=== PATIENT | male | born 1995 | race Two or more races ===

== ENCOUNTER 2019-12-24 17:34 | Outpatient (REF) | payer OTHER, SELFPAY | END 2019-12-24 17:35 | disposition home or self-care (01) | LOC: HO.LAB 17:34 | PROVIDERS: PCP Physician Assistant; Visit Provider Internal Medicine | DX: Z20.828 Contact with and (suspected) exposure to other viral communicable diseases (principal) | CPT/HCPCS: U0003 ==

== ENCOUNTER 2020-01-17 17:46 | Outpatient (REF) | payer OTHER, SELFPAY | END 2020-01-17 17:47 | disposition home or self-care (01) | LOC: HO.LAB 17:46 | PROVIDERS: PCP Physician Assistant; Visit Provider Internal Medicine | DX: Z20.828 Contact with and (suspected) exposure to other viral communicable diseases (principal) | CPT/HCPCS: C9803; U0003 ==

== ENCOUNTER 2020-02-08 12:01 | Outpatient (REF) | payer OTHER, SELFPAY | END 2020-02-08 12:02 | disposition home or self-care (01) | LOC: HO.LAB 12:01 | PROVIDERS: Visit Provider Internal Medicine | DX: Z20.828 Contact with and (suspected) exposure to other viral communicable diseases (principal) | CPT/HCPCS: C9803; U0003 ==

== ENCOUNTER 2020-10-17 09:07 | Outpatient (REF) | payer OTHER, SELFPAY ==
[2020-10-17 11:01] LABS: Hemoglobin 15.7 g/dl (14.0-18.0); Mean Corpuscular HGB Conc 34.1 g/dl (31.0-36.0); Mean Corpuscular Volume 87.8 fL (80-98); Platelet Count 351 X10*3/uL (160-400); Red Blood Count 5.24 X10*6/uL (4.60-5.80); Red Cell Distribution Width 13.5 % (11.0-16.0); White Blood Count 7.4 X10*3/uL (4.8-10.8)
[2020-10-17 11:08] LABS: Estimated Average Glucose 103 mg/dL; Hemoglobin A1c % 5.2 %
[2020-10-17 11:52] LABS: Alanine Aminotransferase 23 U/L (0-40); Albumin Level 4.4 g/dL (3.5-5.0); Alkaline Phosphatase 72 U/L (39-117); Anion Gap 14 (12-20); Aspartate Amino Transferase 16 U/L (5-37); Bilirubin Total 0.5 mg/dL (0.0-1.0); Blood Urea Nitrogen 15 mg/dL (9-16); Calcium 9.6 mg/dL (8.4-10.2); Carbon Dioxide 24 mmol/L (22-29); Chloride 107 mmol/L (96-108); Cholesterol 208 mg/dL; Estimated Glomerular Filt Rate > 60; Glucose Fasting 95 mg/dL (60-99); HDL Cholesterol 46 mg/dL; LDL Cholesterol Calculated 144 mg/dl; Potassium 4.7 mmol/L (3.3-5.1); Sodium 140 mmol/L (135-145); Total Protein 7.7 g/dL (6.5-8.0); Triglycerides 90 mg/dL
[2020-10-17 12:03] LABS: TSH reflex Free T4 2.07 uIU/mL (0.32-4.0)
[2020-10-24 14:57] LABS: Testosterone, Free 83.3 pg/mL (35.0-155.0); Testosterone, Total 323 ng/dL (250-1100)
== END 2020-10-17 09:08 | disposition home or self-care (01) ==
LOC: HO.LAB 09:07
PROVIDERS: PCP Physician Assistant; Visit Provider Physician Assistant
DX: N62 Hypertrophy of breast (principal); E66.09 Other obesity due to excess calories; E78.9 Disorder of lipoprotein metabolism, unspecified; R73.09 Other abnormal glucose; I10 Essential (primary) hypertension; Z68.31 Body mass index [BMI] 31.0-31.9, adult
CPT/HCPCS: 36415; 80053; 80061; 83036; 84402; 84403; 84443; 85027

== ENCOUNTER → 2020-11-15 13:52 | Outpatient (REF) | payer OTHER, SELFPAY | LOC: HO.SL 13:52 | PROVIDERS: PCP Physician Assistant; Visit Provider Physician Assistant | DX: R06.81 Apnea, not elsewhere classified (principal); J45.909 Unspecified asthma, uncomplicated | CPT/HCPCS: 95806 ==

== ENCOUNTER 2024-06-12 23:39 | Emergency (ER) | payer BC, SELFPAY ==
--- NOTE | ~2024-06-12 | XR_ITS ---
CLINICAL HISTORY: trauma --- Additional Notes or Special Instructions: 3rd and 4th finger tip 3 view left hand Comparison: None Findings: Soft tissue swelling includes the 3rd and 4th digits. Soft tissue defects suggested particularly in the distal soft tissues of the 4th digit. No displaced fracture. No dislocation. Bandage artifact noted about distal soft tissues of the 3rd and 4th digits. Mild deformity of the 5th metacarpal appears old/chronic IMPRESSION: 1. No acute fracture or dislocation. 2. Soft tissue swelling includes the 3rd and 4th digits. This document has been electronically signed by: Toro Hooks MD on 06/13/2024 02:07:17
[2024-06-12 23:51] VITALS: BP 125/94; PULSE 76; RESP 20; TEMP 36.4; O2SAT 99; BMI 33.4
--- NOTE | 2024-06-13 00:09 | ED.GENADULT ---
HPI - General Adult General Chief complaint: Wound/Laceration Stated complaint: finger lac Time Seen by Provider: 06/12/24 23:59 Source: patient, RN notes reviewed and old records reviewed Mode of arrival: ambulatory Limitations: no limitations History of Present Illness ED Provider: Gerardo WANG narrative: 28-year-old male presents for evaluation of left hand injury. Patient reports he was cutting vinyl tile. He reports that his hand slipped near the saw and he cut his 3rd and 4th fingers at the fingertip He was unsure when his last tetanus was He has no medical problems it was not on any blood thinners Related Data Previous Rx's ?Medication ?Instructions ?Recorded albuterol sulfate 2.5 mg/3 mL 2.5 mg (3 mL) inhalation Q6H 30 10/09/20 (0.083 %) solution for nebulization days #360 mL albuterol sulfate 90 mcg/actuation 1 inh inhalation QID 30 days #8.5 10/10/21 aerosol inhaler grams cephalexin 500 mg capsule 500 mg PO Q8H #15 caps 06/13/24 Allergies Allergy/AdvReac Type Severity Reaction Status Date / Time Sulfa (Sulfonamide Allergy Unknown rash Verified 06/12/24 23:53 Antibiotics) sulfamethoxazole Allergy Unknown UNKNOWN Verified 06/12/24 23:53 [From BACTRIM] trimethoprim [From BACTRIM] Allergy Unknown UNKNOWN Verified 06/12/24 23:53 bactrim Allergy Intermediate Itching Uncoded 10/10/21 16:13 Review of Systems Constitutional: Constitutional: Denies body ache(s), Denies chills and Denies headache(s) ENT: Denies headache(s) Integumentary/Breasts: Skin/Breast: Reports wounds Neurologic: Denies headache(s) [facility] Family History Family History Sister Substance use disorder Father Substance use disorder HTN (hypertension) Diabetes Mother Hypothyroid Social History Social History (Updated 10/10/21 @ 16:43 by Kun Conn PA-C) Housing: House Alcohol intake: current Alcohol intake frequency: holidays/special occasions only Alcohol type: beer Patient Tobacco Use Status: Never used Tobacco e-Cigarette/Vaping Use: Never Used Second Hand Smoke Exposure: No Advance Directives: Yes Advance Directives Information Provided: Yes Advance Directives on File: No Do you have a plan to hurt others: No Plan service: No Current occupational status: employed Current occupation: [employer] Cognitive needs: No Hearing needs: No Vision needs: No Physical Exam ED Vital Signs: Vital Signs - 24 hr 06/12/24 23:51 06/13/24 00:14 Temperature 97.5 F 98.2 F Pulse Rate 76 68 Respiratory Rate 20 18 Blood Pressure 125/94 H 133/85 Pulse Oximetry 99 96 Oxygen Delivery Method Room Air Room Air BMI result Body Mass Index 33.4 Const General: healthy appearing, comfortable, no acute distress, alert and awake Nutritional Appearance: well nourished Orientation/consciousness: patient oriented x3 HENMT Head: Yes normocephalic and Yes atraumatic Eyes Eyelids: Yes eyelids normal Conjunctivae: conjunctivae normal Sclerae: sclerae normal Corneas: corneas normal Pupils: Equal, round and reactive pupils present EOM: EOMs intact bilaterally Neck Neck: Yes full ROM Resp Effort & Inspection: normal respiratory effort, able to speak in complete sentences and not labored Skin General skin exam: elasticity normal Neuro General: patient oriented x3 Cranial nerves: Yes Equal, round and reactive pupils present and Yes Bilaterally intact EOM present Cognition (Neuro): normal cognition Extrem Other: Patient has an avulsion injury to the fingertip of the left 3rd and 4th fingers. The 4th finger appears more affected with a 1 x 1 cm avulsion on the ulnar side of the fingertip. There is active bleeding. I do not see any exposed bone. The 3rd finger has a smaller, 0.5 x 0.5 cm avulsion also on the ulnar side of the fingertip. This appears fairly shallow Course Reevaluation(s) Reevaluation #1: Hemostasis was achieved with topical TXA and Surgicel. Sterile dressing applied. X-ray shows no definitive fracture. We will give the patient is short course of antibiotics given the wounds will remain open Time: 02:19 Medications Administered Discontinued Medications Generic Name Dose Route Start Last Admin Trade Name Freq PRN Reason Stop Dose Admin Diphtheria/Tetanus/Acell Pertussis 0.5 ml 06/13/24 00:10 06/13/24 00:17 Diphth,Pertus(Acell),Tet Adult 0.5 Ml Syringe IM 06/13/24 00:11 0.5 ml .ONCE ONE Administration Tranexamic Acid 1,000 mg/ 60 mls @ 360 mls/hr 06/13/24 00:09 06/13/24 00:18 Sodium Chloride IV 06/13/24 00:18 360 mls/hr ONCE ONE Administration Ketorolac Tromethamine 30 mg 06/13/24 01:05 06/13/24 01:24 Ketorolac Tromethamine 30 Mg/Ml Vial IM 06/13/24 01:06 30 mg ONCE ONE Administration Medical Decision Making Medical Decision Making MDM Narrative: 28-year-old male presents for evaluation of an avulsion injury to his left 3rd and 4th finger. I have a low suspicion for bony injury, but given the trauma we will get an x-ray of the left hand. Per our records, the patient's last tetanus was in 2018, he agrees to a booster today. Attempt to control the bleeding with TXA and direct pressure. Prior to hemostasis we will cleaned the wounds. Given the nature of the injury, there is no indication for emergent closure, as this is an avulsion injury, not a simple laceration that can be repaired. Differential Diagnosis Differential Diagnoses: The differential diagnosis associated with the presentation includes Avulsion injury Laceration Skin tear Open Independent Interpretation I performed an independent interpretation of an: Plain X-Ray Interpretation: No obvious fracture Radiology Impression Discussion of test interpretation with radiology: I have reviewed the radiologist's reading. Radiologist Impression: Findings: Soft tissue swelling includes the 3rd and 4th digits. Soft tissue defects suggested particularly in the distal soft tissues of the 4th digit. No displaced fracture. No dislocation. Bandage artifact noted about distal soft tissues of the 3rd and 4th digits. Mild deformity of the 5th metacarpal appears old/chronic IMPRESSION: 1. No acute fracture or dislocation. 2. Soft tissue swelling includes the 3rd and 4th digits. This document has been electronically signed by: Toro Hooks MD on 06/13/2024 02:07:17 Discharge Plan Discharge Clinical Impression: Avulsion injury Patient Disposition: Home, Self-Care Instructions: Skin Avulsion (ED) Additional Instructions: You have small avulsion injuries to the tip of your left 3rd and 4th fingers. The skin was removed and can not be sutured closed. Keep the areas clean and dry. Take cephalexin 3 times daily for 5 days to prevent infection You may apply topical antibiotic once a day Follow-up with your primary doctor, return for new or worsening symptoms Your tetanus was updated today Prescriptions: New cephalexin 500 mg capsule 500 mg PO Q8H Qty: 15 0RF No Action albuterol sulfate 90 mcg/actuation HFA aerosol inhaler 1 inh inhalation QID 30 Days Qty: 8.5 1RF albuterol sulfate 2.5 mg /3 mL (0.083 %) solution for nebulization 2.5 mg inhalation Q6H 30 Days Qty: 360 0RF Print Language: Greek
[2024-06-13 00:14] VITALS: BP 133/85; PULSE 68; RESP 18; TEMP 36.8; O2SAT 96
[2024-06-13] MEDS: Diphth,Pertus(ACell),Tet Adult 0.5 ML SYRINGE IM (00:17)
[2024-06-13] MEDS: Tranexamic Acid 1,000 MG in 0.9 % Sodium Chloride 50 ML 360 MG IV (00:18)
[2024-06-13] MEDS: Ketorolac Tromethamine 30 MG/ML VIAL IM (01:24)
--- OUTSIDE RECORDS SUMMARY | 2024-06-13 02:09 | XMS_ITS | Data Portability ---
Author Organization [facility], [address] Address [address] [place] [address] Care Team Providers Care Tick Inspector Name Role Phone SEAN MIRZA Primary Care Provider [phone] Assessment No assessment recorded. Plan of Treatment Reminders Order Date Submit Date Provider Last Modified By Organization Details Last Modified Time Details Appointments None recorded. Lab rapid SARS CoV 2 Ag, QL IA, respiratory specimen 2021 [email or web address] 1 [facility], [address] [place] [address], [id number], 12:03:42 rapid flu (A+B) 2021 [email or web address] 1 [facility], [address] [place] [address], [phone], 12:03:42 Referral None recorded. Procedures None recorded. Surgeries None recorded. Imaging None recorded. Medication Orders oseltamivir 75 mg capsule 2021 [id number], [address] [place], [address], 12:03:43 Patient TargetsNo targets recorded. Patient Instructions Encounter Date Encounter Id Patient Instructions Last Modified By Organization Details Last Modified Time 02/13/2022 [id number] influenza (flu): care instructions [email or web address] Not available 02/13/2022 12:03:51 Reason for Referral None Reported. Results Created Date Observation Date Name Description Value Unit Range Abnormal Flag Note LastModifiedBy Organization Detail LastModifiedTime 02/14/20 22 02/13/2022 rapid SARS CoV 2 Ag, QL IA, respi rator y speci men Unknown Analyte Normal =Negat karli Not Available 2099noemy gentile [address] [place], [address], 02/13/2022 11:36:29 02/14/20 22 02/13/2022 rapid SARS CoV 2 Ag, QL IA, respi rator y speci men Unknown Analyte negati ve Not Available [address] [place], [address], 02/13/2022 11:36:29 02/14/20 22 02/13/2022 rapid flu (A+B) Unknown Analyte Normal = Negati ve Not Available [address] [place] [address] [place], [address], 02/13/2022 11:36:37 02/14/20 22 02/13/2022 rapid flu (A+B) Unknown Analyte Normal = Negati ve Not Available [id number] [place], [address], 02/13/2022 11:36:37 02/14/20 22 02/13/2022 rapid flu (A+B) Unknown Analyte positi ve Not Available [address] [place] [address], [address], 02/13/2022 11:36:37 02/14/20 22 02/13/2022 rapid flu (A+B) Unknown Analyte negati ve Not Available [address] [place] [address] [place], [address], 02/13/2022 11:36:37 Result Notes None recorded. Problems Name Problem SNOMED Code Status Onset Date Resolution Date Notes Provider Name and Address Organization Details Recorded Time Asthma 506836711 Active 022 FRITZ Whatley [facility] 02/13/2022 11:32:15 Problem Notes None recorded. Procedures Surgical History Date Name Laterality Status Provider Name and Address Organization Details Recorded Time 02/24/2009 Knee arthroscop y/surgery completed SUSU Christine [facility] 02/13/2022 11:33:23 Imaging Results None recorded. Procedure Notes None recorded. Medical Equipment None Reported. Allergies Allergen ID Allergen Name Allergen Category Reaction Reaction Severity Criticality Documentation Date Start Date Code Code System Note Provider Name and Address Organization Details Recorded Time 50750 Bactrim medicatio n rash Not available high 02/13/2022 29035 9 RxNorm [facility] 11:31:42 Medications Name Sig Start Date Stop Date Status Note LastModified by Organization Details LastModified Time ofloxacin 0.3 % ear drops INSTILL 5 DROPS INTO AFFECTED EAR 2 TIMES PER DAY FOR 7 DAYS 02/13 completed Not Available Not Available Not Available amoxicillin 875 mg tablet TAKE 1 TABLET (ORAL) 2 TIMES PER DAY FOR 10 DAYS FOR INFECTION 02/13 completed Not Available Not Available Not Available oseltamivir 75 mg capsule TAKE 1 CAPSULE BY MOUTH TWICE A DAY FOR 5 DAYS active Not Available Not Available No t Available albuterol sulf 90 mcg/actuati on breath activated powder inhaler,sen sor Inhale 2 puffs every 4 hours by inhalatio n route. active Not Available Not Available No t Available Vitals Date Recorded Body height Body mass index (BMI) Body weight Oxygen saturation Oxygen saturation in Arterial blood by Pulse oximetry Heart rate Respiratory rate Body temperature Systolic blood pressure Diastolic blood pressure Provider Name and Address Organization Details Last Updated DateTime 172.72 cm 34.4 kg/m2 854406. 88 g 95 % 95 % 91 /min 16 /min 98.8 [degF] 137 mm[Hg] 88 mm[Hg] [facility] 11:35:29 Social History Question Answer Notes LastModified by Organizat ion Details LastModified Time Tobacco Smoking Status Never Smoker FRITZ Whatley [facility] 02/13/2022 11:32:58 What Is Your Level Of Alcohol Consumption? Occasional Information not available 02/13/2022 Are You Currently Employed? Yes Information not available 02/13/2022 Do You Use Any Illicit Or Recreational Drugs? No Information not available 02/13/2022 Have You Recently Traveled Abroad? No Information not available 02/13/2022 Do You Or Have You Ever Used Any Other Forms Of Tobacco Or Nicotine? No Information not available 02/13/2022 Sex: Unknown Functional Status None recorded. Mental Status None recorded. Family History Relationship Description Onset Age of this Age Resolved Age Notes LastModified by Organization Details LastModified Time Mother Hypertensive disorder Not available 2021 11:32:38 Father Diabetes mellitus Not available 2021 11:32:46 Medical History No medical history recorded. Past Encounters Encounter ID Performer Location Encounter Start Date Encounter Closed Date Diagnosis/Indication Diagnosis SNOMED-CT Code Diagnosis ICD10 Code Diagnosis Note [id number] [address] [place] [address] 07/15/2021 18:52:56 07/15/2021 20:05:10 [id number] [address] 04/25/2017 18:50:45 04/25/2017 19:37:12 [id number] SHASTA HUNTER MD [address] [address] 02/13/2022 08:21:11 02/13/2022 12:06:53 Cough 53734531 R05.9 Influenza caused by Influenza A virus 371583415 J09.X2 You can alternate the acetaminop hen (Tylenol) and ibuprofen (Motrin) every 4 hours to help keep the symptoms under better control. If you are having thick mucus, you can useMUCINEX PLAINto help with your symptoms. Mucinex helps to thin mucus and works best when you drink plenty of water/flui ds throughout the whole day. If you are having thick mucus and a cough, you can useMUCINEX -DMto help with your symptoms. Mucinex helps to thin mucus and the DM is the cough suppressan t. This will work best when you drink plenty of water/flui ds throughout the whole day. If you just have coughand not thick mucus, you can useDELSYMt o help with your symptoms. Some people feel DELSYM makes them feel a little tired so you may want to use cough drops during the day and add the DELSYM in at night. Drink plenty of fluids If your symptoms worsen or persist you should be re-evaluat ed. If your symptoms are getting worse, or if you develop new symptoms that concern you, you should call 911 or go to the Emergency Department . Health Concerns Section Related Observation LastModified by Organization Detai ls LastModified Time None Recorded Concern Status LastModified by Organization Details LastModified Time None Recorded Advance Directives Directive None Recorded Payers Encounter Date Sequence Insurance Name Policy Number Policy Mcdermott Covered Member ID Mcdermott Member ID Guarantor Name 04/25/2017 1 [facility] [place] [place] [id number] Xaviel Raj Colon [id number] Xaviel Colon 07/15/2021 1 [facility] [place] [place] [id number] Xaviel Raj Colon [id number] Xaviel Colon 02/13/2022 1 [facility] [place] [place] [id number] Xaviel Raj Colon [id number] Xaviel Colon Notes Date Note Type Note Provider Name and Address Organization Details Recorded Time 02/13/2022 text/html CoughReported bypatient.Quality:d ry and wet; intermittent Severity:moderate Duration:constant; 2 days Timing:constant Associated Symptoms:no nausea; no vomiting;fever(102. 8 max);chills started 3d ago with congestion, 2d ago with cough, achy and yest with f/c/s and feeling awful SHASTA HUNTER MD [address] [place] [place], [address], [place] - [facility] 02/13/2022 12:09:27
--- OUTSIDE RECORDS SUMMARY | 2024-06-13 02:09 | XMS_ITS | Encounter Summary ---
Author Organization [facility] Address [address] [place] [address] Phone Care Team Providers Care Pressing Machine Operator Name Role Phone Gabriel Luna MD Primary Care Provider [phone] Encounter Details Date Type Department Care Team (Late st Contact Info) Description 07/09/2012 Documentation [facility] [place] [facility] [address] [place] [address] Family Medicine, Physician [address] [place], [place] [phone] Social History Tobacco Use Types Packs/Day Years Used Date Smoking Tobacco: Never Assessed Sex and Gender Information Value Date Recorded Sex Assigned at Not on file Legal Sex Male 4:57 PM EDT Gender Identity Not on file Sexual Orientation Not on file documented as of this encounter Plan of Treatment Not on file documented as of this encounter Visit Diagnoses Not on filedocumented in this encounter Care Teams Pressing Machine Operator Relationship Specialty Start Date End Date Gabriel Luna MD [address] [place] [address] [place] [address] PCP - General 10/04/16 05/14/22 documented as of this encounter
--- OUTSIDE RECORDS SUMMARY | 2024-06-13 02:09 | XMS_ITS | Encounter Summary ---
Author Organization [facility] Address [address] [place] [address] Phone Care Team Providers Care Composition Stone Applicator Name Role Phone Gabriel Luna MD Primary Care Provider Encounter Details Date Type Department Care Team (Late st Contact Info) Description 07/09/2012 Documentation [facility] [address] [place] [address] Family Medicine, Physician [address] [place], [place] [phone] Social History Tobacco Use Types Packs/Day Years [...] on filedocumented in this encounter Care Teams Composition Stone Applicator Relationship Specialty Start Date End Date Gabriel Luna MD [address] [place] [address] [place] [address] PCP - General 10/04/16 05/14/22 documented as of this encounter
--- OUTSIDE RECORDS SUMMARY | 2024-06-13 02:09 | XMS_ITS | Encounter Summary ---
Author Organization [facility] Address [address] [place] [address] Phone Care Team Providers Care Leaf Size Picker Name Role Phone Gabriel Luna MD Primary Care Provider [phone] Encounter Details Date Type Department Care Team (Late st Contact Info) Description 11/16/2013 Documentation [facility] [place] Family Medicine [address] [place] [address] Family Medicine, Physician [address] [place], [place] [phone] Social History Tobacco Use Types Packs/Day Years [...] on filedocumented in this encounter Care Teams Leaf Size Picker Relationship Specialty Start Date End Date Gabriel Luna MD [address] [place] [address] [place] [address] PCP - General 10/04/16 05/14/22 documented as of this encounter
--- OUTSIDE RECORDS SUMMARY | 2024-06-13 02:09 | XMS_ITS | Encounter Summary ---
Author Organization [facility] Address [address] [place] [address] Phone Care Team Providers Care Cigar Head Piercer Name Role Phone Gabriel Luna MD Primary Care Provider [phone] Encounter Details Date Type Department Care Team (Late st Contact Info) Description 07/09/2012 Documentation [facility] [place] [address] [place] [address] Family Medicine, Physician [address] [place], [place] [phone] Social History Tobacco Use Types Packs/Day Years [...] on filedocumented in this encounter Care Teams Cigar Head Piercer Relationship Specialty Start Date End Date Gabriel Luna MD [address] [place] [address] [place] [address] PCP - General 10/04/16 05/14/22 documented as of this encounter
--- OUTSIDE RECORDS SUMMARY | 2024-06-13 02:09 | XMS_ITS | Encounter Summary ---
Author Organization [facility] Address [address] [place] [address] Phone Care Team Providers Care Patch Setter Name Role Phone Gabriel Luna MD Primary Care Provider [phone] Encounter Details Date Type Department Care Team (Late st Contact Info) Description 07/09/2012 Documentation [facility] [place] [address] [place] [address] Family Medicine, Physician [address] [place], [place] [phone] Social History Tobacco Use Types Packs/Day Years [...] on filedocumented in this encounter Care Teams Patch Setter Relationship Specialty Start Date End Date Gabriel Luna MD [address] [place] [address] [place] [address] PCP - General 10/04/16 05/14/22 documented as of this encounter
--- OUTSIDE RECORDS SUMMARY | 2024-06-13 02:09 | XMS_ITS | Encounter Summary ---
Author Organization [facility] Address [address] [place] [address] Phone Care Team Providers Care Clinical Lab Specialist Name Role Phone Gabriel Luna MD Primary Care Provider [phone] Encounter Details Date Type Department Care Team (Late st Contact Info) Description 07/09/2012 Documentation [facility] [place] [address] [place] [address] Family Medicine, Physician [address] [place], [place] [phone] Social History Tobacco Use Types Packs/Day Years [...] on filedocumented in this encounter Care Teams Clinical Lab Specialist Relationship Specialty Start Date End Date Gabriel Luna MD [address] [place] [address] [place] [address] PCP - General 10/04/16 05/14/22 documented as of this encounter
--- OUTSIDE RECORDS SUMMARY | 2024-06-13 02:09 | XMS_ITS | Encounter Summary ---
Author Organization [facility] Address [address] [place] [address] Phone Care Team Providers Care Bass Fisher Name Role Phone Gabriel Luna MD Primary Care Provider [phone] Encounter Details Date Type Department Care Team (Late st Contact Info) Description 09/15/2012 Documentation [facility] [place] [facility] [address] [place] [address] Family Medicine, Physician [address] [place], [place] [phone] Social History Tobacco Use Types Packs/Day Years [...] on filedocumented in this encounter Care Teams Bass Fisher Relationship Specialty Start Date End Date Gabriel Luna MD [address] [place] [address] [place] [address] PCP - General 10/04/16 05/14/22 documented as of this encounter
--- OUTSIDE RECORDS SUMMARY | 2024-06-13 02:10 | XMS_ITS | Encounter Summary ---
Author Organization [facility] Address [address] [place] [address] Phone Care Team Providers Care Whiteprinting Machine Operator Name Role Phone Gabriel Luna MD Primary Care Provider [phone] Encounter Details Date Type Department Care Team (Late st Contact Info) Description 03/08/2010 Documentation [facility] [place] [address] [place] [address] Family Medicine, Physician [address] [place], [place] [phone] Social History Tobacco Use Types Packs/Day Years [...] on filedocumented in this encounter Care Teams Whiteprinting Machine Operator Relationship Specialty Start Date End Date Gabriel Luna MD [address] [place] [address] [place] [address] PCP - General 10/04/16 05/14/22 documented as of this encounter
--- OUTSIDE RECORDS SUMMARY | 2024-06-13 02:10 | XMS_ITS | Clinical Summary ---
Author Organization [facility] Address [address] [place] [address] Phone Care Team Providers Care Tech Ed/Woodshop Teacher Name Role Phone Unavailable Primary Care Provider Unavailabl e Immunizations Immunization Administration Dates Next Due DTP 07/10/1995, 5,06/04/1994,02/21 DTaP 5 10/13/1998 H1N1 02/10/2009 HPV, Quadrivalent 11/15/2013,09/14/2012,07/09/19 13 Hep A, Adult 11/22/2014,11/15/2013 Hep B, ped/adol 12/18/1994,01/15/1994,1993 Hib (PRP-T) 07/10/1995, 5,06/04/1994,02/21 IPV 09/29/1999, 6,10/07/1994,06/04,02/21/1994 Influenza Split 11/06/2011 Influenza, injectable, quadr ivalent, preservative free 11/22/2014,11/15/2013 Influenza, injectable, trivalent 12/09/2007 MMR 10/13/1998,07/10/1995 Meningococcal Conj (Menactra) MCV4P 11/15/2013,0 08/12/2006 Tdap 08/12/2006 Family History Relation Name Status Comments Father Alive Father: Diabete s mellitus Mother Mother: Healthy Other Family history of Diabetes mellitus, Family history of Cancer, skin, Family history of Asthma, No family history of Obesity Sister Sister: Asthma, Blood disease Social History Tobacco Use Types Packs/Day Years Used Date Smoking Tobacco: Never Comments:Never smoker Sex and Gender Information Value Date Recorded Sex Assigned at Not on file Legal Sex Male 4:57 PM EDT Gender Identity Not on file Sexual Orientation Not on file Last Filed Vital Signs Vital Sign Reading Time Taken Comments Blood Pressure 124/77 11/22/2014 12:00 AM EDT Pulse 73 11/22/2014 12:00 AM EDT Temperature 37 ??C (98.6 ??F) 09/02/2014 12:00 AM EDT Respiratory Rate - - Oxygen Saturation 98% 08/22/2011 12:00 AM EDT Inhaled Oxygen Concentration - - Weight 86.4 kg (190 lb 6.4 oz) 11/22/2014 12:00 AM EDT Height 172.1 cm (5' 7.75 ) 11/22/2014 12:00 AM E DT Body Mass Index 29.16 11/22/2014 12:00 AM EDT Plan of Treatment Health Maintenance Due Date Last Done Comments Varicella Vaccines (1 of 2 - 13+ 2-dose series) 2006 DTaP,Tdap,and Td Vaccines (7 - Td or Tdap) 08/12/2016 08/12/2006, 10/13/1998, 07/10/1995, Additional history exists Influenza Vaccines (#1) 2023 11/23/19 15, 11/15/2013, 11/06/2011, Additional history exists COVID-19 Vaccine (2023- season) 2023 Hepatitis B Vaccines Completed 12/18/1994, 01/15/1994, 1993 HIB Vaccines Completed 07/10/1995, 09/24, 06/04/1994, Additional history exists MMR Vaccines Completed 10/13/1998, 07/10/1995 IPV Vaccines Completed 09/29/1999, 06/24, 10/07/1994, Additional history exists HPV Vaccines Completed 11/15/2013, 08/25, 07/08/2012 Meningococcal Vaccine Aged Out 11/15/2013, 007 No longer eligible based on patient's age to complete this topic Hepatitis A Vaccines Aged Out 11/22/2014, 11/16/19 14 No longer eligible based on patient's age to complete this topic Men B Vaccine Aged Out No longer elig ible based on patient's age to complete this topic Pneumococcal Vaccine Aged Out No long er eligible based on patient's age to complete this topic
--- OUTSIDE RECORDS SUMMARY | 2024-06-13 02:10 | XMS_ITS | Encounter Summary ---
Author Organization [facility] Address [address] [place] [address] Phone Care Team Providers Care Spinning Machine Tender Name Role Phone Gabriel Luna MD Primary Care Provider [phone] Encounter Details Date Type Department Care Team (Late st Contact Info) Description 11/23/2014 Documentation [facility] [place] [address] [place] [address] Family Medicine, Physician [address] [place], [place] [phone] Social History Tobacco Use Types Packs/Day Years [...] on filedocumented in this encounter Care Teams Spinning Machine Tender Relationship Specialty Start Date End Date Gabriel Luna MD [address] [facility] [place] [address] PCP - General 10/04/16 05/14/22 documented as of this encounter
--- OUTSIDE RECORDS SUMMARY | 2024-06-13 02:10 | XMS_ITS | Encounter Summary ---
Author Organization [facility] Address [address] [place] [address] Phone Care Team Providers Care Electrical Checkout Mechanic Name Role Phone Gabriel Luna MD Primary Care Provider [phone] Encounter Details Date Type Department Care Team (Late st Contact Info) Description 11/07/2011 Documentation [facility] [place] [address] [place] [address] Family Medicine, Physician [address] [place], [place] [phone] Social History Tobacco Use Types Packs/Day Years [...] on filedocumented in this encounter Care Teams Electrical Checkout Mechanic Relationship Specialty Start Date End Date Gabriel Luna MD [address] [place] [address] [place] [address] PCP - General 10/04/16 05/14/22 documented as of this encounter
--- OUTSIDE RECORDS SUMMARY | 2024-06-13 02:10 | XMS_ITS | Encounter Summary ---
Author Organization [facility] Address [address] [place] [phone] Phone Care Team Providers Care Irradiated Fuel Handler Name Role Phone Gabriel Luna MD Primary Care Provider [phone] Encounter Details Date Type Department Care Team (Late st Contact Info) Description 11/16/2013 Documentation [facility] [place] [address] [place] [address] Family Medicine, Physician [address] [place], [place] [phone] Social History Tobacco Use Types Packs/Day Years [...] on filedocumented in this encounter Care Teams Irradiated Fuel Handler Relationship Specialty Start Date End Date Gabriel Luna MD [address] [place] [address] [place] [address] PCP - General 10/04/16 05/14/22 documented as of this encounter
--- OUTSIDE RECORDS SUMMARY | 2024-06-13 02:10 | XMS_ITS | Encounter Summary ---
Author Organization [facility] Address [address] [place] [address] Phone Care Team Providers Care Photovoltaic Solar Cell Designer Name Role Phone Gabriel Luna MD Primary Care Provider [phone] Encounter Details Date Type Department Care Team (Late st Contact Info) Description 11/23/2014 [place] [facility] [place] [address] [place] [address] Family Medicine, Physician [address] [place], [place] [phone] Social History Tobacco Use Types Packs/Day Years [...] on filedocumented in this encounter Care Teams Photovoltaic Solar Cell Designer Relationship Specialty Start Date End Date Gabriel Luna MD [address] [facility] [address] PCP - General 10/04/16 05/14/22 documented as of this encounter
--- OUTSIDE RECORDS SUMMARY | 2024-06-13 02:10 | XMS_ITS | Encounter Summary ---
Author Organization [facility] Address [address] [place] [address] Phone Care Team Providers Care Fine Arts Instructor Name Role Phone Gabriel Luna MD Primary Care Provider [phone] Encounter Details Date Type Department Care Team (Late st Contact Info) Description 04/25/2009 Documentation [facility] [place] [address] [place] [address] Family Medicine, Physician [address] [place], [place] [phone] Social History Tobacco Use Types Packs/Day Years [...] on filedocumented in this encounter Care Teams Fine Arts Instructor Relationship Specialty Start Date End Date Gabriel Luna MD [address] [place] [address] [place] [address] PCP - General 10/04/16 05/14/22 documented as of this encounter
--- OUTSIDE RECORDS SUMMARY | 2024-06-13 02:10 | XMS_ITS | Encounter Summary ---
Author Organization [facility] Address [address] [place] [address] Phone Care Team Providers Care Tower Supervisor Name Role Phone Gabriel Luna MD Primary Care Provider [phone] Encounter Details Date Type Department Care Team ([facility] st Contact Info) Description 10/10/2016 Conversion Encounter [facility] [place] [address] [place] [address] Social History Tobacco Use Types Packs/Day Years [...] on filedocumented in this encounter Care Teams Tower Supervisor Relationship Specialty Start Date End Date Gabriel Luna MD [address] [place] [address] PCP - General 10/04/16 05/14/22 documented as of this encounter
--- OUTSIDE RECORDS SUMMARY | 2024-06-13 02:10 | XMS_ITS | Encounter Summary ---
Author Organization [facility] Address [address] [place] [address] Phone Care Team Providers Care Ship'S Cook Name Role Phone Gabriel Luna MD Primary Care Provider [phone] Encounter Details Date Type Department Care Team (Late st Contact Info) Description 11/23/2014 [place] [facility] [place] [address] [place] [address] Family Medicine, Physician [address] [place], [place] [phone] Social History Tobacco Use Types Packs/Day Years [...] on filedocumented in this encounter Care Teams Ship'S Cook Relationship Specialty Start Date End Date Gabriel Luna MD [address] [facility] [place] [address] PCP - General 10/04/16 05/14/22 documented as of this encounter
[2024-06-13 02:27] VITALS: BP 113/62; PULSE 47; RESP 16; O2SAT 96
[2024-06-13 02:33] VITALS: BP 112/64; PULSE 56; RESP 18; TEMP 36.5; O2SAT 96
== END 2024-06-13 02:38 | disposition home or self-care (01) ==
PROVIDERS: Emergency Provider Emergency Medicine; PCP Internal Medicine
DX: S61.303A Unspecified open wound of left middle finger with damage to nail, initial encounter (principal); S61.305A Unspecified open wound of left ring finger with damage to nail, initial encounter; W27.0XXA Contact with workbench tool, initial encounter; Y93.89 Activity, other specified; Y92.9 Unspecified place or not applicable; Y99.9 Unspecified external cause status; Z23 Encounter for immunization
CPT/HCPCS: 73130; 90471; 90715; 96372; 99284; J1885

== ENCOUNTER → 2024-06-13 00:10 | Outpatient (BNV) | payer BC, SELFPAY | PROVIDERS: Emergency Provider Emergency Medicine; PCP Internal Medicine; Visit Provider Radiology Neuroradiology | DX: S69.92XA Unspecified injury of left wrist, hand and finger(s), initial encounter (principal) | CPT/HCPCS: 73130 ==

== ENCOUNTER → 2024-11-12 10:05 | Outpatient (BNVA) | payer OTHER, SELFPAY | PROVIDERS: PCP Internal Medicine; Visit Provider Emergency Medicine | DX: S83.92XA Sprain of unspecified site of left knee, initial encounter (principal); X50.1XXA Overexertion from prolonged static or awkward postures, initial encounter | CPT/HCPCS: 73564; 99204 ==

== ENCOUNTER → 2024-11-26 08:08 | Outpatient (BNVA) | payer OTHER, SELFPAY | PROVIDERS: PCP Internal Medicine; Visit Provider Emergency Medicine | DX: S83.92XD Sprain of unspecified site of left knee, subsequent encounter (principal); X50.1XXD Overexertion from prolonged static or awkward postures, subsequent encounter; Z02.79 Encounter for issue of other medical certificate | CPT/HCPCS: 99213 ==

== ENCOUNTER 2024-12-21 07:54 | Outpatient (AMB) | payer BC, SELFPAY ==
[2024-12-21 07:57] VITALS: BP 118/72; PULSE 75; O2SAT 98; BMI 34.2
--- NOTE | 2024-12-21 07:57 | A.OFFPC_ITS ---
Vital Signs 12/21/24 07:57 Height 5 ft 8 in Weight 225 lb BMI 34.2 BP 118/72 Blood Pressure Location Lt brachial Position Sitting Pulse 75 Pulse Source Pulse Oximeter Pulse Oximetry (%) 98 Oxygen Delivery Method Room Air Intake Visit Reasons: Annual PE-waiting for bcbs To reflect PCP Fabien Allergies Sulfa (Sulfonamide Antibiotics) Allergy (Unknown, Verified 12/21/24 08:08) rash sulfamethoxazole (From BACTRIM) Allergy (Unknown, Verified 12/21/24 08:08) UNKNOWN trimethoprim (From BACTRIM) Allergy (Unknown, Verified 12/21/24 08:08) UNKNOWN bactrim Allergy (Intermediate, Uncoded 12/21/24 08:08) Itching Medication List - Last Reconciled 12/21/24 by Kun Conn PA-C albuterol sulfate 2.5 mg (3 mL) inhalation Q6H 30 days albuterol sulfate 90 mcg/actuation 1 inh inhalation QID 30 days Tobacco use date assessed: 12/21/24 Dental Screening Dental Screen Date: 12/21/24 Did you have a dental visit in the last 12 months?: Yes Did you have a dental problem in the last 6 months where you did not have access to dental care?: No Was dental information given to patient?: Patient has dentist HPI Annual PE-waiting for bcbs To reflect PCP Fabien HPI Details Patient is a 29 year-old male here today for annual physical. ?Patient has a past medical history? significant for asthma, mild TUTU, obesity GERD. . ?..? Concerns--> patient concerned about developing diabetes, his weight in his testosterone levels ... ?Asthma: REport his breathing has been stable, only using his albuterol inhaler on a p.r.n. basis.? He does report his breathing is compromise during humid weather. ?. Class 1 Obesity:? Unfortunately has gained weight since last office visit..? Has been working on lifestyle to reduce portion sizes and be more physically active. Of note did do a testosterone level when he was 26 years old which was on the low end of normal. ? Vaccines:? Up-to-date with tetanus UTD with COVID Vac, declines flu vaccine , Needs PCV-20 PFSH Medical History Pain Family History (Updated 12/21/24 @ 08:11 by Kun Conn PA-C) Sister Substance use disorder Father Substance use disorder HTN (hypertension) Diabetes Mother Hypothyroid Diabetes Social History (Updated 12/21/24 @ 08:12 by Kun Conn PA-C) Housing: House Alcohol intake: current Alcohol intake frequency: holidays/special occasions only Alcohol type: beer Patient Tobacco Use Status: Never used Tobacco Tobacco use type: Cigarette e-Cigarette/Vaping Use: Never Used Second Hand Smoke Exposure: No service: No Current occupational status: employed Current occupation: [employer] Cognitive needs: No Hearing needs: No Vision needs: No Questionnaire PHQ-9 Over the last 2 weeks, how often have you been bothered by any of the following problems? 1. Little interest or pleasure in doing things: not at all 2. Feeling down, depressed, or hopeless: not at all 3. Trouble falling or staying asleep, or sleeping too much: not at all 4. Feeling tired or having little energy: several days 5. Poor appetite or overeating: not at all 6. Feeling bad about yourself - or that you are a failure or have let yourself or your family down: not at all 7. Trouble concentrating on things, such as reading the newspaper or watching television: not at all 8. Moving or speaking so slowly that other people could have noticed. Or the opposite - being so fidgety or restless that you have been moving around a lot more than usual: not at all 9. Thoughts that you would be better off or of hurting yourself in some way: not at all Total score: 1 Depression Screening Interpretation: Negative Depression Screening Done: Yes 18283 - PHQ-9 Billing: Yes Source: Developed by Drs. Jovan Ch, Erin Ramirez, Luis De Jesus and colleagues, with an educational allen from [employer]. Thrive Questionnaire Date Thrive assessed: 12/14/24 I am a: Patient What is your living situation today?: I have a steady place to live Within the past 12 months, did the food you bought not last and you didn't have the money to get more?: Never true Within the past 12 months, did you worry whether your food would run out before you got money to buy more?: Never true Do you have trouble paying for medicines?: No Do you have trouble getting transportation to medical appointments?: No Do you have trouble paying your heating and electricity bill?: No Do you have trouble taking care of your child, family member or friend?: No Do you have trouble with day-to-day activities such as bathing, preparing meals, shopping, managing finances, etc.?: No Are you currently unemployed and looking for a job?: No Are you interested in more education?: No Please select the resources that you would like help with: None Currently or been in a relationship where the following occur: No concerns reported THRIVE Score: 0 AUDIT C Alcohol Use Questionnaire (AUDIT-C) 1. How often do you have a drink containing alcohol?: 2-4 times a month 2. How many drinks containing alcohol do you have on a typical day when you are drinking?: 3 or 4 3. How often do you have six or more drinks on one occasion?: Less than monthly Total Score: 4 RENALDO-7 AMB Questionnaire RENALDO-7 Date RENALDO - 7 assessed: 12/21/24 Feeling nervous, anxious, or on edge: 0 = Not at all Not being able to stop or control worryin = Not at all Worrying too much about different things: 0 = Not at all Trouble relaxin = Several days Being so restless that it is hard to sit still: 1 = Several days Becoming easily annoyed or irritable: 0 = Not at all Feeling afraid as if something awful might happen: 0 = Not at all Total RENALDO-7 score (0-4 normal; 5-9 mild; 10-14 moderate; 15-21 severe): 2 Source: Developed by Drs. Jovan Ch, Erin Ramirez, Luis De Jesus and colleagues, with an educational allen from [employer]. ACT Questionnaire In the past 4 weeks, how much of the time did your asthma keep you from getting as much done at work, school or at home?: None of the time During the past 4 weeks, how often have you had shortness of breath?: Not at all During the past 4 weeks, how often did your asthma symptoms wake you up at night or earlier than usual in the morning?: Not at all During the past 4 weeks, how often have you had to use your rescue inhaler or nebulizer medication?: Not at all How would you rate your asthma control during the past 4 weeks?: Completely controlled ACT Interpretation: Negative Score: 25 Review of Systems Const Denies body aches, Denies chills, Denies excessive sweating, Denies fatigue, Denies fever(s) and Denies headache(s) Eyes Denies blurry vision ENT Denies dysphagia, Denies vertigo, Denies dizziness, Denies headache(s), Denies hearing loss and Denies tinnitus Card Denies chest pain, Denies chest pain with activity, Denies syncope, Denies irregular heart rhythm and Denies dyspnea Resp Denies chest congestion, Denies cough, Denies hemoptysis, Denies dyspnea and Denies wheezing GI Denies abdominal pain, Denies melena, Denies hematochezia, Denies coffee ground emesis, Denies dysphagia, Denies diarrhea, Denies nausea and Denies vomiting Denies difficulty urinating, Denies dysuria, Denies urinary frequency, Denies urinary hesitancy and Denies urinary urgency Musc Denies arthralgias, Denies limited range of motion, Denies muscle cramps and Denies muscle weakness Skin/Breast Denies rash and Denies skin ulcer Neuro Denies Abnormal speech present, Denies confusion, Denies vertigo, Denies dizziness, Denies syncope, Denies headache(s), Denies memory loss and Denies seizure-like activity Psych Denies anxiety, Denies confusion, Denies depression, Denies memory loss, Denies panic attacks and Denies paranoia Endo Denies excessive sweating, Denies fatigue, Denies flushing, Denies polydipsia and Denies polyuria Aller/Immun Denies wheezing Physical exam (Primary Care) Vital Signs: Last Vital Signs Pulse 75 12/21/24 07:57 BP 118/72 12/21/24 07:57 Pulse Ox 98 12/21/24 07:57 Oxygen Delivery Method Room Air 12/21/24 07:57 BMI result Body Mass Index 34.2 BMI Assessment/Plan discussion: High BMI High, discussed plan: lifestyle, weight reduction, dietary and physical activity Tobacco/Smoking Status: Tobacco use Status Tobacco use date assessed 12/21/24 12/21/24 08:01 Patient Tobacco Use Status Never used Tobacco 12/21/24 08:12 Tobacco use type Cigarette 12/21/24 08:12 e-Cigarette/Vaping Use Never Used 12/21/24 08:12 PHQ-9: PHQ-9 Score PHQ-9: Total score 1 12/21/24 08:30 Depression Screening Interpretation: Negative Thrive Assessment: Date of Thrive Assessment Date Thrive assessed 12/14/24 12/21/24 08:01 Currently or been in a relationship where the following occur: No concerns reported Const General: cooperative, comfortable, no acute distress, alert and awake; No confusion Orientation/consciousness: oriented to person, oriented to place, patient oriented x3 and No confusion HENMT Head: Yes normocephalic Ears: external ears normal and TM's normal bilaterally Face and sinus: No sinus tenderness Mouth: Normal oral and palatal mucosa present and tongue normal Teeth and gingiva: dentition normal and gingiva normal Throat: Yes posterior oropharynx normal, Yes tonsils normal and Yes uvula midline Eyes Conjunctivae: conjunctivae normal Sclerae: sclerae normal Pupils: Equal, round and reactive pupils present EOM: EOMs intact bilaterally Direct Ophthalmoscopy: No no photophobia Neck Neck: Yes no lymphadenopathy, No tender and Yes no JVD Thyroid: Thyroid normal Carotids: no bruits Chest Chest palpation & inspection: no tenderness Resp Effort & Inspection: normal respiratory effort, no audible wheezes, not labored and no stridor Auscultation: no crackles, no rales, no rhonchi and no wheezes Cardio Jugular venous distension: no JVD Rate: regular rate, not bradycardic and not tachycardic Rhythm: regular rhythm Bruits: no carotid bruits Peripheral pulses: Peripheral pulses 2+ throughout GI Inspection: Yes normal to inspection, No abdominal wall ecchymosis and No visible herniation Palpation (GI): Soft to palpation, nontender, no guarding, not rigid and No hepatosplenomegaly present Auscultation: normoactive bowel sounds General: Yes no CVA tenderness Back/Spine/Pelvis Back: no CVA tenderness and No back tenderness Cervical Spine: cervical ROM normal Thoracic/Lumbar Spine: thoracic and lumbar spine normal to inspection, straight leg raise negative bilaterally, No thoraco-lumbar ROM limited and No lumbar spinal tenderness Skin Lesions: no lesions Rashes: no rashes Wounds: no wounds Neuro General: oriented to person, oriented to place, patient oriented x3, CN's II-XI intact bilaterally and No confusion Cranial nerves: Yes Equal, round and reactive pupils present and Yes Normal accommodation reflex present Cognition (Neuro): normal cognition Speech: No Abnormal speech present Gait exam (Neuro): Normal gait present Motor exam (neuro): 5/5 motor strength present throughout Extrem Right upper extremity: full ROM; no cyanosis Left upper extremity: full ROM; no cyanosis Right lower extremity: no edema Left lower extremity: no edema Psych Appearance: grossly normal Mental Status: mental status grossly normal Affect: normal affect Attitude: cooperative Thought process: Normal thought process present Immunizations pneumoc 20-concetta conj-dip cr(PF) 0.5 mL IM syringe Performing Provider: Kun Conn PA-C [facility] [place] [facility] Administered by: Aysha Olson RN on 12/21/24 08:40 Dose Route Admin Location Dispensed Lot Number Expiration Date [facility] [place] Electronic Development Technician 0.5 mL IM Left Deltoid 0.5 mL [id number] 12/23/25 [employer] Total Dispensed Waste 0.5 mL 0 % VIS Given Date VIS Provided VIS Publication Date 12/21/24 Single Vaccine 24 Eligibility Eligibility Date Funding Source Not [facility] Eligible 12/21/24 Private Coding Level of Care Code Est Pt Prev Care 18-39y([id number]) Diagnoses Annual physical exam Z00.00 Class 1 obesity E66.9 Mild asthma without complication, unspecified whether persistent J45.909 Asthma severity: mild Asthma persistence: unspecified Asthma complication type: uncomplicated Borderline high cholesterol E78.9 TUTU (obstructive sleep apnea) G47.33 Additional Codes PHQ-9 - 83101 - PHQ-9 Billing: Yes ([id number]) Asthma Control Questionnaire - ACT Interpretation: Negative ([id number]) Assessment & Plan Assessment & Plan (1) Annual physical exam: Code(s): Z00.00 - Encounter for general adult medical examination without abnormal findings Category: Medical Plan: As per HPI (2) Class 1 obesity: Code(s): E66.9 - Obesity, unspecified Category: Medical Plan: Patient does understand his BMI is over 30 and will continue working on being more physically active and adapting to better eating habits to reduce his weight. He has found it very difficult to reduce his weight below 210 lb even with calorie counting and being more physically active. He is concerned he has a metabolic/hormone issue (3) Asthma: Code(s): J45.909 - Unspecified asthma, uncomplicated Category: Medical Qualifiers: Asthma severity: mild Asthma persistence: unspecified Asthma complication type: uncomplicated Qualified Code(s): J45.909 - Unspecified asthma, uncomplicated Plan: Patient reports his asthma is well controlled. Has not had to use his nebulizer or albuterol inhaler in quite some time. (4) Borderline high cholesterol: Code(s): E78.9 - Disorder of lipoprotein metabolism, unspecified Category: Medical Plan: Patient has a history of borderline high total cholesterol. Will continue to follow fasting lipid panel. Goal total cholesterol to be below 200, goal LDL to be below 160 (5) TUTU (obstructive sleep apnea): Code(s): G47.33 - Obstructive sleep apnea (adult) (pediatric) Category: Medical Plan: Patient continues to show signs of obstructive sleep apnea with snoring and apneic episodes at night noted by his . Also waking up with a minor headache and sleeplessness. Will send for a new home sleep study for re- evaluation. Orders: Orders TSH reflex Free T4 Today N62 - Hypertrophy of breast Pneumococcal 20 Immunization Today Z23 - Encounter for immunization Hemoglobin A1c Today R73.09 - Other abnormal glucose Lipid Panel Today E78.9 - Disorder of lipoprotein metabolism, unspecified Comprehensive [place]. Panel Fast Today E78.9 - Disorder of lipoprotein metabolism, unspecified Complete Blood Count no Diff Today E78.9 - Disorder of lipoprotein metabolism, unspecified Testosterone, Free/Total Today N62 - Hypertrophy of breast RT home sleep study Today G47.33 - Obstructive sleep apnea (adult) (pediatric) Medications: Refilled albuterol sulfate 90 mcg/actuation 1 inh inhalation QID 8.5 grams 1RF 30 days J. - Unspecified asthma, uncomplicated albuterol sulfate 2.5 mg (3 mL) inhalation Q6H 360 mL 0RF 30 days J. - Unspecified asthma, uncomplicated
--- OUTSIDE RECORDS SUMMARY | 2024-12-21 07:58 | XMS_ITS | Encounter Summary ---
Author Organization [facility] Address [address] [place] [address] Phone Care Team Providers Care Supervisor Slate Splitting Name Role Phone Gabriel Luna MD Primary Care Provider [phone] Encounter Details Date Type Department Care Team (Late st Contact Info) Description 07/09/2012 Documentation [facility] [place] Family Medicine [address] [place] [address] Family Medicine, Physician [address] [place], [place] [phone] Social History Tobacco Use Types Packs/Day Years [...] on filedocumented in this encounter Care Teams Supervisor Slate Splitting Relationship Specialty Start Date End Date Gabriel Luna MD [address] [place] [address] [place] [address] PCP - General 10/04/16 05/14/22 documented as of this encounter
--- OUTSIDE RECORDS SUMMARY | 2024-12-21 07:58 | XMS_ITS | Encounter Summary ---
Author Organization [facility] Address [address] [place] [address] Phone Care Team Providers Care Carpenter Assistant Installer Name Role Phone Gabriel Luna MD Primary Care Provider [phone] Encounter Details Date Type Department Care Team (Late st Contact Info) Description 07/09/2012 Documentation [facility] [place] Family Medicine [address] [place] [address] Family Medicine, Physician [address] [place], [place] [phone] Social History Tobacco Use Types Packs/Day Years [...] on filedocumented in this encounter Care Teams Carpenter Assistant Installer Relationship Specialty Start Date End Date Gabriel Luna MD [address] [place] [address] [place] [address] PCP - General 10/04/16 05/14/22 documented as of this encounter
--- OUTSIDE RECORDS SUMMARY | 2024-12-21 07:58 | XMS_ITS | Encounter Summary ---
Author Organization [facility] Address [address] [place] [address] Phone Care Team Providers Care Instrument Specialist Name Role Phone Gabriel Luna MD Primary Care Provider [phone] Encounter Details Date Type Department Care Team (Late st Contact Info) Description 07/09/[address] [facility] [place] Family Medicine [address] [place] [address] Family Medicine, Physician [address] [place], [place] [phone] Social History Tobacco Use Types Packs/Day Years [...] on filedocumented in this encounter Care Teams Instrument Specialist Relationship Specialty Start Date End Date Gabriel Luna MD [address] [place] [address] [place] [address] PCP - General 10/04/16 05/14/22 documented as of this encounter
--- OUTSIDE RECORDS SUMMARY | 2024-12-21 07:58 | XMS_ITS | Encounter Summary ---
Author Organization [facility] Address [address] [place] [address] Phone Care Team Providers Care Heat Plant Specialist Name Role Phone Gabriel Luna MD Primary Care Provider [phone] Encounter Details Date Type Department Care Team (Late st Contact Info) Description 07/09/2012 Documentation [facility] Family Medicine [address] [place] [address] Family Medicine, Physician [address] [place], [place] [phone] Social History Tobacco Use Types Packs/Day Years [...] on filedocumented in this encounter Care Teams Heat Plant Specialist Relationship Specialty Start Date End Date Gabriel Luna MD [address] [place] [address] [place] [address] PCP - General 10/04/16 05/14/22 documented as of this encounter
--- OUTSIDE RECORDS SUMMARY | 2024-12-21 07:58 | XMS_ITS | Encounter Summary ---
Author Organization [facility] Address [address] [place] [address] Phone Care Team Providers Care Substation Designer Name Role Phone Gabriel Luna MD Primary Care Provider [phone] Encounter Details Date Type Department Care Team (Late st Contact Info) Description 11/16/2013 Documentation [facility] [place] [address] [place] [address] Family Medicine, Physician [address] [place], [place] [phone] Social History Tobacco Use Types Packs/Day Years [...] on filedocumented in this encounter Care Teams Substation Designer Relationship Specialty Start Date End Date Gabriel Luna MD [address] [place] [address] [place] [address] PCP - General 10/04/16 05/14/22 documented as of this encounter
--- OUTSIDE RECORDS SUMMARY | 2024-12-21 07:58 | XMS_ITS | Encounter Summary ---
Author Organization [facility] Address [address] [place] [address] Phone Care Team Providers Care Residential Housekeeper Name Role Phone Gabriel Luna MD Primary Care Provider [phone] Encounter Details Date Type Department Care Team (Late st Contact Info) Description 11/23/2014 Documentation [facility] [place] Family Medicine [address] [place] [address] Family Medicine, Physician [address] [place], [place] [phone] Social History Tobacco Use Types Packs/Day Years [...] on filedocumented in this encounter Care Teams Residential Housekeeper Relationship Specialty Start Date End Date Gabriel Luna MD [address] [facility] [place] [address] PCP - General 10/04/16 05/14/22 documented as of this encounter
--- OUTSIDE RECORDS SUMMARY | 2024-12-21 07:58 | XMS_ITS | Encounter Summary ---
Author Organization [facility] Address [address] [place] [address] Phone Care Team Providers Care Tape Maker Name Role Phone Gabriel Luna MD Primary Care Provider [phone] Encounter Details Date Type Department Care Team (Late st Contact Info) Description 04/25/2009 Documentation [facility] [place] [address] [place] [address] Family Medicine, Physician [address] [place], [place] [phone] Social History Tobacco Use Types Packs/Day Years [...] on filedocumented in this encounter Care Teams Tape Maker Relationship Specialty Start Date End Date Gabriel Luna MD [address] [place] [address] [place] [address] PCP - General 10/04/16 05/14/22 documented as of this encounter
--- OUTSIDE RECORDS SUMMARY | 2024-12-21 07:58 | XMS_ITS | Encounter Summary ---
Author Organization [facility] Address [address] [place] [address] Phone Care Team Providers Care Fabrication Department Supervisor Name Role Phone Gabriel Luna MD Primary Care Provider [phone] Encounter Details Date Type Department Care Team (Late st Contact Info) Description 11/23/2014 Documentation [facility] [place] Family Medicine [address] [place] [address] Family Medicine, Physician [address] [place], [place] [phone] Social History Tobacco Use Types Packs/Day Years [...] on filedocumented in this encounter Care Teams Fabrication Department Supervisor Relationship Specialty Start Date End Date Gabriel Luna MD [address] [facility] [place] [address] PCP - General 10/04/16 05/14/22 documented as of this encounter
--- OUTSIDE RECORDS SUMMARY | 2024-12-21 07:58 | XMS_ITS | Encounter Summary ---
Author Organization [facility] Address [address] [place] [address] Phone Care Team Providers Care Coin Machine Collector Supervisor Name Role Phone Gabriel Luna MD Primary Care Provider [phone] Encounter Details Date Type Department Care Team (Late st Contact Info) Description 09/15/2012 Documentation [facility] [place] Family Medicine [address] [place] [address] Family Medicine, Physician [address] [place], [place] [phone] Social History Tobacco Use Types Packs/Day Years [...] on filedocumented in this encounter Care Teams Coin Machine Collector Supervisor Relationship Specialty Start Date End Date Gabriel Luna MD [address] [place] [address] [place] [address] PCP - General 10/04/16 05/14/22 documented as of this encounter
--- OUTSIDE RECORDS SUMMARY | 2024-12-21 07:58 | XMS_ITS | Encounter Summary ---
Author Organization [facility] Address [address] [place] [address] Phone Care Team Providers Care Engine Setter Name Role Phone Gabriel Luna MD Primary Care Provider [phone] Encounter Details Date Type Department Care Team (Late st Contact Info) Description 07/09/2012 Documentation [facility] [place] [address] [place] [address] Family Medicine, Physician [address] [place], [place] [phone] Social History Tobacco Use Types Packs/Day Years [...] on filedocumented in this encounter Care Teams Engine Setter Relationship Specialty Start Date End Date Gabriel Luna MD [address] [place] [address] [place] [address] PCP - General 10/04/16 05/14/22 documented as of this encounter
--- OUTSIDE RECORDS SUMMARY | 2024-12-21 07:58 | XMS_ITS | Encounter Summary ---
Author Organization [facility] Address [address] [place] [address] Phone Care Team Providers Care Car Ferry Captain Name Role Phone Gabriel Luna MD Primary Care Provider [phone] Encounter Details Date Type Department Care Team (Late st Contact Info) Description 03/08/2010 Documentation [facility] [place] Family Medicine [address] [place] [address] Family Medicine, Physician [address] [place], [place] [phone] Social History Tobacco Use Types Packs/Day Years [...] on filedocumented in this encounter Care Teams Car Ferry Captain Relationship Specialty Start Date End Date Gabriel Lnua MD [address] [place] [address] [place] [address] PCP - General 10/04/16 05/14/22 documented as of this encounter
--- OUTSIDE RECORDS SUMMARY | 2024-12-21 07:58 | XMS_ITS | Encounter Summary ---
Author Organization [facility] Address [address] [place] [address] Phone Care Team Providers Care Condenser Cleaner Name Role Phone Gabriel Luna MD Primary Care Provider [phone] Encounter Details Date Type Department Care Team ([facility] st Contact Info) Description 10/10/2016 Conversion Encounter [facility] [place] [address] [place] [address] Social History Tobacco Use Types Packs/Day Years [...] on filedocumented in this encounter Care Teams Condenser Cleaner Relationship Specialty Start Date End Date Gabriel Luna MD [address] [place] [address] PCP - General 10/04/16 05/14/22 documented as of this encounter
--- OUTSIDE RECORDS SUMMARY | 2024-12-21 07:58 | XMS_ITS | Clinical Summary ---
Author Organization [facility] Address [address] [place] [address] Phone Care Team Providers Care Elementary School Science Teacher Name Role Phone Unavailable Primary Care [...] 73 11/22/2014 12:00 AM EDT Temperature 37 C (98.6 F) 09/02/2014 12:00 AM EDT Respiratory Rate - [...] 07/10/1995, Additional history exists Influenza Vaccines (#1) 2024 11/23/19 15, 11/15/2013, 11/06/2011, Additional history exists COVID-19 Vaccine ( season) 2024 Hepatitis B Vaccines Completed 12/18/1994, 01/15/1994, 1993 [...]
--- OUTSIDE RECORDS SUMMARY | 2024-12-21 07:58 | XMS_ITS | Encounter Summary ---
Author Organization [facility] Address [address] [place] [address] Phone Care Team Providers Care Home Weatherizing Worker Name Role Phone Gabriel Luna MD Primary Care Provider [phone] Encounter Details Date Type Department Care Team (Late st Contact Info) Description 07/09/2012 Documentation [facility] [place] [address] [place] [address] Family Medicine, Physician [address] [place], [place] [phone] Social History Tobacco Use Types Packs/Day Years [...] on filedocumented in this encounter Care Teams Home Weatherizing Worker Relationship Specialty Start Date End Date Gabriel Luna MD [address] [place] [address] [place] [address] PCP - General 10/04/16 05/14/22 documented as of this encounter
--- OUTSIDE RECORDS SUMMARY | 2024-12-21 07:58 | XMS_ITS | Encounter Summary ---
Author Organization [facility] Address [address] [place] [address] Phone Care Team Providers Care Music Box Mechanic Name Role Phone Gabriel Luna MD Primary Care Provider [phone] Encounter Details Date Type Department Care Team (Late st Contact Info) Description 11/23/2014 Documentation [facility] [place] [address] [place] [address] Family Medicine, Physician [address] [place], [place] [phone] Social History Tobacco Use Types Packs/Day Years [...] on filedocumented in this encounter Care Teams Music Box Mechanic Relationship Specialty Start Date End Date Gabriel Luna MD [address] [facility] [place] [address] PCP - General 10/04/16 05/14/22 documented as of this encounter
--- OUTSIDE RECORDS SUMMARY | 2024-12-21 07:58 | XMS_ITS | Encounter Summary ---
Author Organization [facility] Address [address] [place] [address] Phone Care Team Providers Care Car Stower Name Role Phone Gabriel Luna MD Primary Care Provider [phone] Encounter Details Date Type Department Care Team (Late st Contact Info) Description 11/07/2011 Documentation [facility] [place] Family Medicine [address] [place] [address] Family Medicine, Physician [address] [place], [place] [phone] Social History Tobacco Use Types Packs/Day Years [...] filedocumented in this encounter Care Teams Car Stower Relationship Specialty Start Date End Date Gabriel Luna MD [address] [place] [address] [place] [address] PCP - General 10/04/16 05/14/22 documented as of this encounter
--- OUTSIDE RECORDS SUMMARY | 2024-12-21 07:58 | XMS_ITS | Data Portability ---
Author Organization [facility], [address] Address [address] [place] [address] Care Team Providers Care Geochemist Name Role Phone SEAN MIRZA Primary Care Provider [phone] Assessment No assessment recorded. Plan of Treatment Reminders Order Date Submit Date Provider Last Modified By Organization Details Last Modified Time Details Appointments None recorded. Lab rapid SARS CoV 2 Ag, QL IA, respiratory specimen 2021 022 [email or web address] 1 _caitlyn [facility], [address] [place] [address], [id number], 12:03:42 rapid flu (A+B) 2021 022 [email or web address] 1 _caitlyn [facility], [address] [place] [address], [id number], 12:03:42 Referral None recorded. Procedures None recorded. Surgeries None recorded. Imaging None recorded. Medication Orders oseltamivir 75 mg capsule 2021 022 [id number], [address] [place], [address], 12:03:43 Patient TargetsNo targets recorded. Patient Instructions Encounter Date Encounter Id Patient Instructions Last Modified By Organization Details Last Modified Time 02/13/2022 [id number] influenza (flu): care instructions [email or web address] Not available 02/13/2022 12:03:51 Reason for Referral None Reported. Results Created Date Observation Date Name Description Value Unit Range Abnormal Flag Note LastModifiedBy Organization Detail LastModifiedTime 02/14/20 22 02/13/2022 rapid SARS CoV 2 Ag, QL IA, respi rator y speci men Unknown Analyte Normal =Negat karli Not Available 2099[address]emy gentile [address] [place], [address], 02/13/2022 11:36:29 02/14/20 22 02/13/2022 rapid SARS CoV 2 Ag, QL IA, respi rator y speci men Unknown Analyte negati ve Not Available [address] [place], [address], 02/13/2022 11:36:29 02/14/20 22 02/13/2022 rapid flu (A+B) Unknown Analyte Normal = Negati ve Not Available [address] [place] [address], [address], 02/13/2022 11:36:37 02/14/20 22 02/13/2022 rapid flu (A+B) Unknown Analyte Normal = Negati ve Not Available [address]99noemy [address] [place], [address], 02/13/2022 11:36:37 02/14/20 22 02/13/2022 rapid flu (A+B) Unknown Analyte positi ve Not Available [address] [place] [address], [address], 02/13/2022 11:36:37 02/14/20 22 02/13/2022 rapid flu (A+B) Unknown Analyte negati ve Not Available [facility] [place], [address], 02/13/2022 11:36:37 Result Notes None recorded. Problems Name Problem SNOMED Code Status Onset Date Resolution Date Notes Provider Name and Address Organization Details Recorded Time Asthma 702653829 Active 022 SUSU baez [place] - [facility] 02/13/2022 11:32:15 Problem Notes None [...] Name and Address Organization Details Recorded Time 59704 Bactrim medicatio n rash Not available high 02/13/2022 [address]9711 9 [facility] 11:31:42 Medications Name Sig Start Date [...] Heart rate Respiratory rate Body temperature Systolic And Diastolic Provider Name and Address Organization Details Last Updated DateTime 2 172.72 cm 34.4 kg/m2 327443. 88 g 95 % 95 % 91 /min 16 /min 98.8 [degF] 137/88 mm[Hg] [facility] 2 11:35:29 Social History Question Answer Notes LastModified by Organizat ion Details LastModified Time Tobacco Smoking Status Never Smoker [facility] 02/13/2022 11:32:58 Have You Recently Traveled Abroad? No Information not available 02/13/2022 Sex: Unknown Functional Status Question Answer Note LastModified by Organizat ion Details LastModified Time Do you use any illicit or recreational drugs? No Information not available 02/13/2022 Do you or have you ever used any other forms of tobacco or nicotine? No Information not available 02/13/2022 What is your level of alcohol consumption? Occasional Information not available 02/13/2022 Are you currently employed? Yes Information not available 02/13/2022 Mental Status None recorded. Family History Relationship Description Onset Age of this Age Resolved Age Notes LastModified by Organization Details LastModified Time Mother Hypertensive disorder Not available 2021 11:32:38 Father Diabetes mellitus Not available 2021 11:32:46 Medical History No medical history recorded. Past Encounters Encounter ID Performer Location Encounter Start Date Encounter Closed Date Diagnosis/Indication Diagnosis SNOMED-CT Code Diagnosis ICD10 Code Diagnosis IMO Codes Diagnosis Note [id number] [address] [place] [address] 07/15/2021 18:52:56 07/15/2021 20:05:10 [id number] [address] [address] [address] [place] [address] 04/25/2017 18:50:45 04/25/2017 19:37:12 [id number] SHASTA HUNTER MD [address] [facility] [address] [place] [address] 02/13/2022 08:21:11 02/13/2022 12:06:53 Cough 33531659 R05.9 Influenza caused by Influenza A virus 851491253 J09.X2 You can alternate the acetaminop hen [...] Recorded Advance Directives Directive None Recorded Payers Insurance Date Sequence Insurance Name Policy Number Policy Mcdermott Covered Member ID Mcdermott Member ID Guarantor Name 02/26/[address] [place] [address] ([facility]) [id number] Xaviel Raj Colon [id number] Xaviel Colon Notes Date Note Type Note Provider Name and Address Organization Details Recorded Time 02/13/2022 text/html CoughReported by PatientHPIFor quality, patient reportsdry and wetbut reportsintermittent. For associated symptoms, patient reportsfever (102.8 max)andchillsbut reportsno nauseaandno vomiting. For severity, patient reportsmoderate. For duration, patient reportsconstantand2 days. For timing, patient reportsconstant. started 3d ago with congestion, 2d ago with cough, achy and yest with f/c/s and feeling awful SHASTA HUNTER MD [address] [place], [address], [place] - [facility] 02/13/2022 12:09:27
--- OUTSIDE RECORDS SUMMARY | 2024-12-21 07:58 | XMS_ITS | Encounter Summary ---
Author Organization [facility] Address [address] [place] [address] Phone Care Team Providers Care Instrument Lens Generator Name Role Phone Gabriel Luna MD Primary Care Provider [phone] Encounter Details Date Type Department Care Team (Late st Contact Info) Description 11/16/2013 Documentation [facility] [place] [address] [place] [address] Family Medicine, Physician [address] [place], [place] [phone] Social History Tobacco Use Types Packs/Day Years [...] filedocumented in this encounter Care Teams Instrument Lens Generator Relationship Specialty Start Date End Date Gabriel Luna MD [address] [place] [address] [place] [address] PCP - General 10/04/16 05/14/22 documented as of this encounter
== END 2024-12-21 08:42 | disposition home or self-care (01) ==
LOC: HO.HMCH 07:55
PROVIDERS: PCP Physician Assistant; Visit Provider Physician Assistant
DX: Z00.00 Encounter for general adult medical examination without abnormal findings (principal); E66.9 Obesity, unspecified; Z68.34 Body mass index [BMI] 34.0-34.9, adult; J45.909 Unspecified asthma, uncomplicated; G47.33 Obstructive sleep apnea (adult) (pediatric); E78.9 Disorder of lipoprotein metabolism, unspecified; Z23 Encounter for immunization

== ENCOUNTER 2024-12-21 07:54 | Outpatient (REF) | payer BC, SELFPAY ==
[2024-12-21 09:14] LABS: Hematocrit 46.8 % (42.0-52.0); Hemoglobin 15.9 g/dl (14.0-18.0); Mean Corpuscular HGB Conc 34.0 g/dl (31.0-36.0); Mean Corpuscular Hemoglobin 30.0 pg (27.0-33.0); Mean Corpuscular Volume 88.3 fL (80.0-98.0); NRBC Abs Auto 0.000 X10*3/uL (0.0-0.012); NRBC Pct Auto 0.0 /100WBC (0.0-0.2); Platelet Count 343 X10*3/uL (160-400); Red Blood Count 5.30 X10*6/uL (4.60-5.80); White Blood Count 12.2 X10*3/uL (4.8-10.8)
[2024-12-21 09:23] LABS: Total Hemoglobin (HGBA1C) 4112.9436 umol/L
[2024-12-21 09:55] LABS: Alanine Aminotransferase 45 U/L (0-40); Albumin Level 4.7 g/dL (3.5-5.0); Alkaline Phosphatase 84 U/L (39-117); Anion Gap 11 (12-20); Aspartate Amino Transferase 29 U/L (5-37); Blood Urea Nitrogen 16 mg/dL (9-16); Calcium 9.9 mg/dL (8.4-10.2); Carbon Dioxide 27 mmol/L (22-29); Chloride 107 mmol/L (96-108); Cholesterol 226 mg/dL (<200); Estimated Glomerular Filt Rate > 60; HDL Cholesterol 48 mg/dL (>40); Potassium 4.0 mmol/L (3.3-5.1); Sodium 141 mmol/L (135-145); Total Protein 8.1 g/dL (6.5-8.0); Triglycerides 132 mg/dL (<150)
== END 2024-12-21 07:55 | disposition home or self-care (01) ==
LOC: HO.LAB 07:54
PROVIDERS: PCP Physician Assistant; Visit Provider Physician Assistant
DX: Z00.00 Encounter for general adult medical examination without abnormal findings (principal); E78.9 Disorder of lipoprotein metabolism, unspecified; N62 Hypertrophy of breast; R73.09 Other abnormal glucose; J45.909 Unspecified asthma, uncomplicated; G47.33 Obstructive sleep apnea (adult) (pediatric); E66.9 Obesity, unspecified; K21.9 Gastro-esophageal reflux disease without esophagitis; E66.811 Obesity, class 1; Z23 Encounter for immunization; Z68.34 Body mass index [BMI] 34.0-34.9, adult
CPT/HCPCS: 36415; 80053; 80061; 83036; 84443; 85027; 90471; 90677; 96127; 96160

== ENCOUNTER 2024-12-28 06:09 | Outpatient (REF) | payer BC, SELFPAY ==
--- OUTSIDE RECORDS SUMMARY | 2024-12-28 06:13 | XMS_ITS | Encounter Summary ---
Author Organization [facility] Address [address] [place] [address] Phone Care Team Providers Care Auto Collision Repair Instructor Name Role Phone Gabriel Luna MD Primary Care Provider [phone] Encounter Details Date Type Department Care Team (Late st Contact Info) Description 11/16/2013 Documentation [facility] [place] Family Medicine [address] [place] [address] Family Medicine, Physician [address] [place], [place] [phone] Social History Tobacco Use Types Packs/Day Years [...] on filedocumented in this encounter Care Teams Auto Collision Repair Instructor Relationship Specialty Start Date End Date Gabriel Luna MD [address] [place] [address] [place] [address] PCP - General 10/04/16 05/14/22 documented as of this encounter
--- OUTSIDE RECORDS SUMMARY | 2024-12-28 06:13 | XMS_ITS | Encounter Summary ---
Author Organization [facility] Address [address] [place] [address] Phone Care Team Providers Care Pepper Cutter Name Role Phone Gabriel Luna MD Primary Care Provider [phone] Encounter Details Date Type Department Care Team (Late st Contact Info) Description 04/25/2009 Documentation [facility] [place] [address] [place] [address] Family Medicine, Physician [address] [place], [place] [phone] Social History Tobacco Use Types Packs/Day Years [...] on filedocumented in this encounter Care Teams Pepper Cutter Relationship Specialty Start Date End Date Gabriel Luna MD [address] [place] [address] [place] [address] PCP - General 10/04/16 05/14/22 documented as of this encounter
--- OUTSIDE RECORDS SUMMARY | 2024-12-28 06:13 | XMS_ITS | Encounter Summary ---
Author Organization [facility] Address [address] [place] [address] Phone Care Team Providers Care Bulb Planter Name Role Phone Gabriel Luna MD Primary Care Provider [phone] Encounter Details Date Type Department Care Team (Late st Contact Info) Description 11/23/2014 Documentation [facility] [place] Family Medicine [address] [place] [address] Family Medicine, Physician [address] [place], [place] [phone] Social History Tobacco Use Types Packs/Day Years [...] on filedocumented in this encounter Care Teams Bulb Planter Relationship Specialty Start Date End Date Gabriel Luna MD [address] [facility] [address] PCP - General 10/04/16 05/14/22 documented as of this encounter
--- OUTSIDE RECORDS SUMMARY | 2024-12-28 06:13 | XMS_ITS | Data Portability ---
Author Organization [facility], [address] Address [address] [place] [address] Care Team Providers Care Records And Information Manager Name Role Phone SEAN MIRZA Primary Care Provider [phone] Assessment No assessment recorded. Plan of Treatment Reminders Order Date Submit Date Provider Last Modified By Organization Details Last Modified Time Details Appointments None recorded. Lab rapid SARS CoV 2 Ag, QL IA, respiratory specimen 2021 022 [email or web address] 1 _[facility]ait[facility], [address] [place] [address], [phone], 12:03:42 rapid flu (A+B) 2021 022 [email or web address] 1 _[facility]ailtyn [facility], [address] [place] [address], [phone], 12:03:42 Referral None recorded. Procedures None recorded. Surgeries None recorded. Imaging None recorded. Medication Orders oseltamivir 75 mg capsule 2021 022 [id number], [address] [place], [address], 12:03:43 Patient TargetsNo targets recorded. Patient Instructions Encounter Date Encounter Id Patient Instructions Last Modified By Organization Details Last Modified Time 02/13/2022 [id number] influenza (flu): care instructions [email or web address] Not available 02/13/2022 12:03:51 Reason for Referral None Reported. Results Created Date Observation Date Name Description Value Unit Range Abnormal Flag Note LastModifiedBy Organization Detail LastModifiedTime 02/14/20 22 02/13/2022 rapid SARS CoV 2 Ag, QL IA, respi rator y speci men Unknown Analyte Normal =Negat karli Not Available 2099noemy gentile [address] [place], [address], 02/13/2022 11:36:29 02/14/20 22 02/13/2022 rapid SARS CoV 2 Ag, QL IA, respi rator y speci men Unknown Analyte negati ve Not Available [address] [place], [address], 02/13/2022 11:36:29 02/14/20 22 02/13/2022 rapid flu (A+B) Unknown Analyte Normal = Negati ve Not Available [address] [place] [address], [address], 02/13/2022 11:36:37 02/14/20 22 02/13/2022 rapid flu (A+B) Unknown Analyte Normal = Negati ve Not Available 2099noemy [address] [place] [place], [address], 02/13/2022 11:36:37 02/14/20 22 02/13/2022 rapid flu (A+B) Unknown Analyte positi ve Not Available [address] [place] [address], [address], 02/13/2022 11:36:37 02/14/20 22 02/13/2022 rapid flu (A+B) Unknown Analyte negati ve Not Available [facility] [place], [address], 02/13/2022 11:36:37 Result Notes None recorded. Problems Name Problem SNOMED Code Status Onset Date Resolution Date Notes Provider Name and Address Organization Details Recorded Time Asthma [id number] Active 022 SUSU baez [place] - [facility] [...] Name and Address Organization Details Recorded Time 00730 Bactrim medicatio n rash Not available high 02/13/2022 13370 9 [facility] 11:31:42 Medications [...] Updated DateTime 2 172.72 cm 34.4 kg/m2 268405. 88 g 95 % 95 % 91 [...] ICD10 Code Diagnosis IMO Codes Diagnosis Note [id number] [address] [place] [address] 07/15/2021 18:52:56 07/15/2021 20:05:10 [id number] 20[address] [address] [address] [place] [address] 04/25/2017 18:50:45 04/25/2017 19:37:12 [id number] SHASTA HUNTER MD [address] [facility] [address] [place] [address] 02/13/2022 08:21:11 02/13/2022 12:06:53 Cough 93949408 R05.9 Influenza caused by Influenza A virus [id number] J09.X2 You can alternate the acetaminop hen [...] ID Mcdermott Member ID Guarantor Name 02/26/[address] [place] [address] ([facility] [id number] Xaviel Raj Colon [id number] Xaviel Colon Notes Date Note Type Note [...] SHASTA HUNTER MD [address] [place], [address], [place] - [facility] 02/13/2022 12:09:27
--- OUTSIDE RECORDS SUMMARY | 2024-12-28 06:13 | XMS_ITS | Clinical Summary ---
Author Organization [facility] Address [address] [place] [address] Phone Care Team Providers Care Veterinary Dentist Name Role Phone Unavailable Primary Care Provider [...]
--- OUTSIDE RECORDS SUMMARY | 2024-12-28 06:13 | XMS_ITS | Encounter Summary ---
Author Organization [facility] Address [address] [place] [address] Phone Care Team Providers Care Devil Tender Name Role Phone Gabriel Luna MD Primary Care Provider [phone] Encounter Details Date Type Department Care Team (Late st Contact Info) Description 11/16/2013 Documentation [facility] [place] Family Medicine [address] [place] [address] Family Medicine, Physician [address] [place], [place] [phone] Social History Tobacco Use Types Packs/Day Years [...] on filedocumented in this encounter Care Teams Devil Tender Relationship Specialty Start Date End Date Gabriel Luna MD [address] [place] [address] [place] [address] PCP - General 10/04/16 05/14/22 documented as of this encounter
--- OUTSIDE RECORDS SUMMARY | 2024-12-28 06:13 | XMS_ITS | Encounter Summary ---
Author Organization [facility] Address [address] [place] [address] Phone Care Team Providers Care Auditing Specialist Name Role Phone Gabriel Luna MD Primary Care Provider [phone] Encounter Details Date Type Department Care Team (Late st Contact Info) Description 07/09/2012 Documentation [facility] [place] Family Medicine [address] [place] [address] Family Medicine, Physician [address] [place], [place] [phone] Social History Tobacco Use Types Packs/Day Years [...] on filedocumented in this encounter Care Teams Auditing Specialist Relationship Specialty Start Date End Date Gabriel Luna MD [address] [place] [address] [place] [address] PCP - General 10/04/16 05/14/22 documented as of this encounter
--- OUTSIDE RECORDS SUMMARY | 2024-12-28 06:13 | XMS_ITS | Encounter Summary ---
Author Organization [facility] Address [address] [place] [address] Phone Care Team Providers Care Parole Director Name Role Phone Gabriel Luna MD Primary Care Provider [phone] Encounter Details Date Type Department Care Team (Late st Contact Info) Description 09/15/2012 Documentation [facility] [place] [address] [place] [address] Family Medicine, Physician [address] [place] [address] Social History Tobacco Use Types Packs/Day Years [...] on filedocumented in this encounter Care Teams Parole Director Relationship Specialty Start Date End Date Gabriel Luna MD [address] [place] [address] [place] [address] PCP - General 10/04/16 05/14/22 documented as of this encounter
--- OUTSIDE RECORDS SUMMARY | 2024-12-28 06:13 | XMS_ITS | Encounter Summary ---
Author Organization [facility] Address [address] [place] [address] Phone Care Team Providers Care Warm In Name Role Phone Gabriel Luna MD Primary Care Provider [phone] Encounter Details Date Type Department Care Team (Late st Contact Info) Description 11/23/2014 Documentation [facility] [place] [address] [place] [address] Family Medicine, Physician [address] [place], [place] [phone] Social History Tobacco Use Types Packs/Day Years [...] on filedocumented in this encounter Care Teams Warm In Relationship Specialty Start Date End Date Gabriel Luna MD [address] [facility] [place] [address] PCP - General 10/04/16 05/14/22 documented as of this encounter
--- OUTSIDE RECORDS SUMMARY | 2024-12-28 06:13 | XMS_ITS | Encounter Summary ---
Author Organization [facility] Address [address] [place] [address] Phone Care Team Providers Care Keno Writer/Runner Name Role Phone Gabriel Luna MD Primary Care Provider [phone] Encounter Details Date Type Department Care Team (Late st Contact Info) Description 07/09/2012 Documentation [facility] [place] Family Medicine [address] [place] [address] Family Medicine, Physician [address] [place], [place] [phone] Social History Tobacco Use Types Packs/Day Years [...] on filedocumented in this encounter Care Teams Keno Writer/Runner Relationship Specialty Start Date End Date Gabriel Luna MD [address] [place] [address] [place] [address] PCP - General 10/04/16 05/14/22 documented as of this encounter
--- OUTSIDE RECORDS SUMMARY | 2024-12-28 06:13 | XMS_ITS | Encounter Summary ---
Author Organization [facility] Address [address] [place] [address] Phone Care Team Providers Care Marking Clerk Name Role Phone Gabriel Luna MD Primary Care Provider [phone] Encounter Details Date Type Department Care Team (Late st Contact Info) Description 07/09/2012 Documentation [facility] [place] [address] [place] [address] Family Medicine, Physician [address] [place], [place] [phone] Social History Tobacco Use Types Packs/Day Years [...] on filedocumented in this encounter Care Teams Marking Clerk Relationship Specialty Start Date End Date Gabriel Luna MD [address] [place] [address] [place] [address] PCP - General 10/04/16 05/14/22 documented as of this encounter
--- OUTSIDE RECORDS SUMMARY | 2024-12-28 06:13 | XMS_ITS | Encounter Summary ---
Author Organization [facility] Address [address] [place] [address] Phone Care Team Providers Care Klystrom Tube Tester Name Role Phone Gabriel Luna MD Primary Care Provider [phone] Encounter Details Date Type Department Care Team (Late st Contact Info) Description 11/07/2011 Documentation [facility] [address] [place] [address] Family Medicine, Physician [address] [place], [place] [phone] Social History Tobacco Use Types Packs/Day Years [...] on filedocumented in this encounter Care Teams Klystrom Tube Tester Relationship Specialty Start Date End Date Gabriel Luna MD [address] [place] [address] [place] [address] PCP - General 10/04/16 05/14/22 documented as of this encounter
--- OUTSIDE RECORDS SUMMARY | 2024-12-28 06:13 | XMS_ITS | Encounter Summary ---
Author Organization [facility] Address [address] [place] [address] Phone Care Team Providers Care Development Disability Specialist Name Role Phone Gabriel Luna MD Primary Care Provider [phone] Encounter Details Date Type Department Care Team (Late st Contact Info) Description 07/09/2012 Documentation [facility] [place] [address] [place] [address] Family Medicine, Physician [address] [place], [place] [phone] Social History Tobacco Use Types Packs/Day Years [...] on filedocumented in this encounter Care Teams Development Disability Specialist Relationship Specialty Start Date End Date Gabriel Luna MD [address] [place] [address] [place] [address] PCP - General 10/04/16 05/14/22 documented as of this encounter
--- OUTSIDE RECORDS SUMMARY | 2024-12-28 06:13 | XMS_ITS | Encounter Summary ---
Author Organization [facility] Address [address] [place] [address] Phone Care Team Providers Care Hotel Reservationist Name Role Phone Gabriel Luna MD Primary Care Provider [phone] Encounter Details Date Type Department Care Team (Late st Contact Info) Description 03/08/2010 Documentation [facility] [place] [address] [place] [address] Family Medicine, Physician [address] [place], [place] [phone] Social History Tobacco Use Types Packs/Day Years [...] on filedocumented in this encounter Care Teams Hotel Reservationist Relationship Specialty Start Date End Date Gabriel Luna MD [address] [place] [address] [place] [address] PCP - General 10/04/16 05/14/22 documented as of this encounter
--- OUTSIDE RECORDS SUMMARY | 2024-12-28 06:13 | XMS_ITS | Encounter Summary ---
Author Organization [facility] Address [address] [place] [address] Phone Care Team Providers Care Director Of Fundraising Name Role Phone Gabriel Luna MD Primary Care Provider [phone] Encounter Details Date Type Department Care Team ([facility] st Contact Info) Description 10/10/2016 Conversion Encounter [facility] [place] [address] [place] [address] Social History Tobacco Use Types Packs/Day Years [...] on filedocumented in this encounter Care Teams Director Of Fundraising Relationship Specialty Start Date End Date Gabriel Luna MD [address] [place] [address] PCP - General 10/04/16 05/14/22 documented as of this encounter
--- OUTSIDE RECORDS SUMMARY | 2024-12-28 06:13 | XMS_ITS | Encounter Summary ---
Author Organization [facility] Address [address] [place] [address] Phone Care Team Providers Care On Air Announcer Name Role Phone Gabriel Luna MD Primary Care Provider [phone] Encounter Details Date Type Department Care Team (Late st Contact Info) Description 07/09/2012 Documentation [facility] [place] [address] [place] [address] Family Medicine, Physician [address] [place], [place] [phone] Social History Tobacco Use Types Packs/Day Years [...] on filedocumented in this encounter Care Teams On Air Announcer Relationship Specialty Start Date End Date Gabriel Luna MD [address] [place] [address] [place] [address] PCP - General 10/04/16 05/14/22 documented as of this encounter
--- OUTSIDE RECORDS SUMMARY | 2024-12-28 06:13 | XMS_ITS | Encounter Summary ---
Author Organization [facility] Address [address] [place] [address] Phone Care Team Providers Care Grill Prep Cook Name Role Phone Gabriel Luna MD Primary Care Provider [phone] Encounter Details Date Type Department Care Team (Late st Contact Info) Description 11/23/2014 Documentation [facility] [place] Family Medicine [address] [place] [address] Family Medicine, Physician [address] [place], [place] [phone] Social History Tobacco Use Types Packs/Day Years [...] on filedocumented in this encounter Care Teams Grill Prep Cook Relationship Specialty Start Date End Date Gabriel Luna MD [address] [facility] [place] [address] PCP - General 10/04/16 05/14/22 documented as of this encounter
--- OUTSIDE RECORDS SUMMARY | 2024-12-28 06:13 | XMS_ITS | Encounter Summary ---
Author Organization [facility] Address [address] [place] [address] Phone Care Team Providers Care Process Development Manager Name Role Phone Gabriel Luna MD Primary Care Provider [phone] Encounter Details Date Type Department Care Team (Late st Contact Info) Description 07/09/2012 Documentation [facility] Family Medicine [address] [place] [address] Family Medicine, Physician [address] [place], [place] [phone] Social History Tobacco Use Types Packs/Day Years [...] on filedocumented in this encounter Care Teams Process Development Manager Relationship Specialty Start Date End Date Gabriel Luna MD [address] [place] [address] [place] [address] PCP - General 10/04/16 05/14/22 documented as of this encounter
[2025-01-02 16:43] LABS: Testosterone, Free 65.8 pg/mL (35.0-155.0)
== END 2024-12-28 06:10 | disposition home or self-care (01) ==
LOC: HO.LAB 06:09
PROVIDERS: PCP Physician Assistant; Visit Provider Physician Assistant
DX: N62 Hypertrophy of breast (principal)
CPT/HCPCS: 36415; 84402; 84403